=== PATIENT | female | born 1990 | race Caucasian/White ===

== ENCOUNTER 2018-10-23 22:45 | Emergency (ER) | payer BC, OTHER ==
[2018-10-23 22:50] VITALS: BP 110/76; PULSE 102; TEMP 97.7; BMI 24.7
--- NOTE | 2018-10-23 22:53 | PDOC ---
History of Present Illness - General History Source: Patient Exam Limitations: No Limitations - History of Present Illness Initial Comments: 10/23/18 23:33 The patient is a 28 year old female, with no significant past medical history of who presents to the emergency department with vomiting and diarrhea since 7pm. The patient states she had 8 episodes of vomiting that started off as bile and progressively got worse at 8:30pm, which turned into bloody specs of vomit. The patient reports she's had a few episodes of soft diarrhea. The patient states she endorses chills, nausea, dehydration and back pain secondary to her symptoms, however, her back pain has since resolved. The patient notes her daughter has the flu at home. The patient denies fever, chest pain, shortness of breath, headache or dizziness. The patient denies dysuria, frequency, urgency or hematuria. Allergies: NKDA Past surgical history: None reported Social history: None reported PCP: Hodan Young <Kendrick Robles - Last Filed: 10/23/18 23:40> <Lia Herron - Last Filed: 10/24/18 04:44> - General Chief Complaint: Vomiting/Diarrhea Stated Complaint: VOMITING Time Seen by Provider: 10/23/18 22:49 Past History <Kendrick Robles - Last Filed: 10/23/18 23:40> - Past Medical History Anemia: No Asthma: Yes Cancer: No Cardiac Disorders: No CVA: No COPD: No CHF: No Dementia: No Diabetes: No GI Disorders: Yes (ABD PAIN; GERD; IBS) Disorders: No HTN: No Hypercholesterolemia: No Liver Disease: No Seizures: No Thyroid Disease: No - Surgical History Cardiac Surgery: No Lung Surgery: No Neurologic Surgery: No - Suicide/Smoking/Psychosocial Hx Smoking History: Never smoked Have you smoked in the past 12 months: No Information on smoking cessation initiated: No Hx Alcohol Use: No Drug/Substance Use Hx: No Substance Use Type: None <Lia Herron - Last Filed: 10/24/18 04:44> - Past Medical History Allergies/Adverse Reactions: Allergies Allergy/AdvReac Type Severity Reaction Status Date / Time No Known Allergies Allergy Verified 10/24/18 00:12 Home Medications: Ambulatory Orders Norethindrone AC-Eth Estradiol [Junel] 1 each PO DAILY 10/24/18 Ondansetron [Zofran Odt -] 4 mg SL TID PRN #12 od.tablet 10/24/18 Review of Systems - Review of Systems Able to Perform ROS?: Yes Comments:: 10/23/18 23:34 GENERAL/CONSTITUTIONAL:(+) dehydration. (+) chills. No fever. No weakness. HEAD, EYES, EARS, NOSE AND THROAT: No change in vision. No ear pain or discharge. No sore throat. CARDIOVASCULAR: No chest pain or shortness of breath. RESPIRATORY: No cough, wheezing, or hemoptysis. GASTROINTESTINAL: (+)nausea, vomiting, diarrhea. No constipation. GENITOURINARY: No dysuria, frequency, or change in urination. MUSCULOSKELETAL; (+) back pain. No joint swelling or muscle pain. No neck pain. SKIN: No rash NEUROLOGIC: No headache, vertigo, loss of consciousness, or change in strength/ sensation. ENDOCRINE: No increased thirst. No abnormal weight change. HEMATOLOGIC/LYMPHATIC: No anemia, easy bleeding, or history of blood clots. ALLERGIC/IMMUNOLOGIC: No hives or skin allergy. All Other Systems: Reviewed and Negative <Kendrick Robles - Last Filed: 10/23/18 23:40> *Physical Exam - Vital Signs Last Vital Signs Temp Pulse Resp BP Pulse Ox 97.7 F 102 H 16 110/76 100 10/23/18 22:47 10/23/18 22:47 10/23/18 22:47 10/23/18 22:47 10/23/18 22:47 - Physical Exam Comments: 10/23/18 23:35 GENERAL: Awake, alert, and fully oriented, in no acute distress HEAD: No signs of trauma EYES: PERRLA, EOMI, sclera anicteric, conjunctiva clear ENT: (+) dry mucous membranes. Auricles normal inspection, hearing grossly normal, nares patent, oropharynx clear without exudates. NECK: Normal ROM, supple, no lymphadenopathy, JVD, or masses LUNGS: Breath sounds equal, clear to auscultation bilaterally. No wheezes, and no crackles HEART: Regular rate and rhythm, normal S1 and S2, no murmurs, rubs or gallops ABDOMEN: Soft, nontender, normoactive bowel sounds. No guarding, no rebound. No masses EXTREMITIES: Normal range of motion, no edema. No clubbing or cyanosis. No cords, erythema, or tenderness NEUROLOGICAL: Cranial nerves II through XII grossly intact. Normal speech, normal gait SKIN: Warm, Dry, normal turgor, no rashes or lesions noted. <Kendrick Robles - Last Filed: 10/23/18 23:40> - Vital Signs Last Vital Signs Temp Pulse Resp BP Pulse Ox 97.7 F 102 H 16 110/76 100 10/23/18 22:47 10/23/18 22:47 10/23/18 22:47 10/23/18 22:47 10/23/18 22:47 <Lia Herron - Last Filed: 10/24/18 04:44> ED Treatment Course - LABORATORY CBC & Chemistry Diagram: 10/23/18 23:00 10/23/18 23:00 - ADDITIONAL ORDERS Additional order review: Laboratory Results 10/23/18 23:00 Sodium 137 Potassium 3.5 Chloride 101 Carbon Dioxide 25 Anion Gap 11 BUN 14 Creatinine 0.8 Creat Clearance w eGFR 84.22 Random Glucose 113 H Calcium 8.8 Total Bilirubin 1.1 H AST 17 ALT 14 Alkaline Phosphatase 54 Total Protein 7.6 Albumin 4.4 Total Amylase 64 10/23/18 23:00 RBC 5.12 MCV 89.1 MCHC 33.5 RDW 12.6 MPV 8.8 Neutrophils % No Result Required. Lymphocytes % No Result Required. - Medications Given in the ED: ED Medications Discontinued Medications Generic Name Dose Route Start Last Admin Trade Name Sukhjinderq PRN Reason Stop Dose Admin Ondansetron HCl 4 mg 10/23/18 22:54 10/23/18 23:03 Zofran Injection IVPUSH 10/23/18 22:55 4 mg ONCE ONE Administration <Kendrick Robles - Last Filed: 10/23/18 23:40> - LABORATORY CBC & Chemistry Diagram: 10/23/18 23:00 10/23/18 23:00 <Lia Herron - Last Filed: 10/24/18 04:44> Progress Note - Progress Note Progress Note: Documentation has been prepared under my direction and personally reviewed by me in its entirety. I attest that this documented accurately reflects all work, treatment, procedures and medical decision making performed by me. <Lia Herron - Last Filed: 10/24/18 04:44> Medical Decision Making - Medical Decision Making As noted above, this otherwise healthy 28-year-old woman presents with several hour history of multiple episodes of vomiting and a few episodes of softer than usual stool. No known fever or other associated symptoms. Patient's school- aged child has similar illness currently. Exam as noted. The patient appears clinically dehydrated. Patient received 2 L IV normal saline hydration as well as Zofran 4 mg IV. Laboratory evaluation shows mild elevation of white blood cell count but no other significant abnormalities. Patient was much more comfortable after IV hydration and IV Zofran Patient was advised to maintain clear liquid diet and advance diet cautiously. Zofran ODT prescription to be used up to 3 times a day sent to her pharmacy. She should return to the emergency room if she has persistent vomiting or experiences increase in abdominal pain/fever <Lia Herron - Last Filed: 10/24/18 04:44> *DC/Admit/Observation/Transfer - Attestations Scribe Attestion: 10/23/18 23:35 Documentation prepared by Kendrick Robles, acting as medical referral coordinator for Lia Herron MD <Kendrick Robles - Last Filed: 10/23/18 23:40> <Lia Herron - Last Filed: 10/24/18 04:44> Diagnosis at time of Disposition: Gastroenteritis - Discharge Dispostion Disposition: HOME Condition at time of disposition: Stable - Prescriptions Prescriptions: Ondansetron [Zofran Odt -] 4 mg SL TID PRN #12 od.tablet PRN Reason: Nausea - Referrals Referrals: Hodan Medellin MD [Primary Care Provider] - - Patient Instructions Printed Discharge Instructions: DI for Viral Gastroenteritis -- Adult Additional Instructions: clear liquids; advance diet slowly Zofran ODT 4mg up to 3 X a day for nausea return to ER if you have persistent vomiting or develop severe abdominal pain/ fever no work tomorrow followup with your doctor within 5 days - Post Discharge Activity Forms/Work/School Notes: Back to Work
[2018-10-23] MEDS ORDERED: SODIUM CHLORIDE 1,000 ML IV STA ×2 (22:54→23:26)
[2018-10-23] MEDS ORDERED: ONDANSETRON 4 MG/2 ML VIAL IVPUSH ONE (22:54)
[2018-10-23] MEDS ORDERED: ONDANSETRON 4 MG/2 ML VIAL ONE (22:55)
[2018-10-23 23:14] LABS: HEMATOCRIT 45.6 % (32.4-45.2); HEMOGLOBIN 15.3 GM/dl (10.7-15.3); RBC 5.12 M/mm3 (3.60-5.2); WHITE BLOOD COUNT 14.2 K/mm3 (4.0-10.8)
[2018-10-23 23:15] LABS: MCH 29.9 pg (25.7-33.7); MCHC 33.5 g/dl (32.0-36.0); MEAN CELL VOLUME 89.1 fl (80-96); MEAN PLT VOLUME 8.8 fl (7.5-11.1); PLATELET COUNT 244 K/MM3 (134-434); RDW 12.6 % (11.6-15.6)
[2018-10-23 23:29] LABS: ALBUMIN 4.4 g/dl (3.4-5.0); ALK PHOS 54 U/L (45-117); AMYLASE 64 U/L (25-115); ANION GAP 11 MMOL/L (8-16); BILIRUBIN,TOTAL 1.1 mg/dl (0.2-1); BLOOD UREA NITROGEN 14 mg/dl (7-18); CALCIUM 8.8 mg/dl (8.5-10); CHLORIDE 101 mmol/L (98-107); CO2 25 mmol/L (21-32); CREATININE 0.8 mg/dl (0.55-1.3); GLUCOSE,RANDOM 113 mg/dl (74-106); POTASSIUM 3.5 mmol/L (3.5-5.1); SGOT/AST 17 U/L (15-37); SGPT/ALT 14 U/L (13-61); SODIUM 137 mmol/L (136-145); TOT PROT 7.6 g/dl (6.4-8.2)
[2018-10-23 23:34] LABS: PLATELET ESTIMATE ADEQUATE
== END 2018-10-24 00:18 | disposition home or self-care (01) ==
LOC: FER 22:45 → SUPCPDRO 22:45 → FER 10-24 00:18
PROC: 3E033GC Introduction of Other Therapeutic Substance into Peripheral Vein, Percutaneous Approach (ICD-10-PCS; principal; 2018-10-23)
PROC: 3E0337Z Introduction of Electrolytic and Water Balance Substance into Peripheral Vein, Percutaneous Approach (ICD-10-PCS; 2018-10-23)
DX: K52.9 Noninfective gastroenteritis and colitis, unspecified (principal); J45.909 Unspecified asthma, uncomplicated; K21.9 Gastro-esophageal reflux disease without esophagitis; K58.9 Irritable bowel syndrome, unspecified
CPT/HCPCS: 36415; 80053; 82150; 85025; 99281-25; J7030

== ENCOUNTER 2021-01-05 22:32 | Emergency (ER) | payer OTHER ==
[2021-01-05 22:40] VITALS: BP 128/85; PULSE 66; TEMP 97.6; BMI 26.5
== END 2021-01-06 00:27 | disposition home or self-care (01) ==
LOC: FER 22:32
DX: G44.209 Tension-type headache, unspecified, not intractable (principal)
CPT/HCPCS: 99281-25